=== PATIENT | female | born 1970 | race Hispanic/Latino ===

== ENCOUNTER 2017-11-21 20:37 | Emergency (ER) | payer BC ==
[2017-11-21] MEDS ORDERED: diphenhydrAMINE 50 MG/ML VIAL ONE (21:35)
[2017-11-21] MEDS ORDERED: Metoclopramide HCl 10 MG/2 ML VIAL ONE (21:35)
[2017-11-21 21:39] LABS: ALT (SGPT) 20 U/L (8-55); AST (SGOT) 18 U/L (5-34); Albumin 4.2 g/dL (3.5-5.0); Alkaline Phosphatase 71 U/L (40-150); Anion Gap 11 mmol/L (10-20); BUN (Urea Nitrogen) 20 mg/dL (7.0-18.7); Bilirubin, Total 0.9 mg/dL (0.2-1.2); Calc. Creatinine Clearance 0 mL/min (70-130); Calcium 9.1 mg/dL (7.8-10.44); Carbon Dioxide 24 mmol/L (22-29); Chloride 106 mmol/L (98-107); Estimated GFR-MDRD 81; Globulin 3.9 g/dL (2.4-3.5); Glucose 94 mg/dL (70-105); Potassium 3.7 mmol/L (3.5-5.1); Protein, Total 8.1 g/dL (6.0-8.3); Sodium 137 mmol/L (136-145)
[2017-11-21 21:47] LABS: Prothrombin Time 13.4 SEC (12.0-14.7)
[2017-11-21 21:52] LABS: #Basophils 0.1 thou/uL (0.0-0.2); #Eosinphils 0.2 thou/uL (0.0-0.7); #Lymphocytes 3.2 thou/uL (1.20-3.40); #Monocytes 0.7 thou/uL (0.11-0.59); #Neutrophils 5.6 thou/uL (1.40-6.50); %Basophils 0.9 % (0.0-1.0); %Lymphocytes 32.4 % (21.0-51.0); %Monocytes 7.3 % (0.0-10.0); %Neutrophils 57.4 % (42.0-75.0); Hemoglobin 13.4 g/dL (12.0-16.0); Mean Corpuscular HGB CONC 32.8 g/dL (32.0-36.0); Mean Corpuscular Hemoglobin 28.8 pg (27.0-31.0); Mean Corpuscular Volume 87.8 fl (81.0-99.0); Mean Platelet Volume 7.9 fL (7.4-10.4); Platelet Count 388 thou/uL (130-400); RBC Distribution Width 12.6 % (11.5-14.5); Red Blood Cell (RBC) Count 4.64 mill/uL (4.20-5.40); White Blood Cell (WBC) Count 9.7 thou/uL (4.8-10.8)
--- NOTE | 2017-11-21 21:59 | CT ---
CT OF BRAIN PERFORMED WITHOUT CONTRAST ENHANCEMENT: 11/21/17 HISTORY: Headache. 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 COMPARISON: A CT examination 06/12/13. The ventricular and cisternal cyst is within normal limits. There is no signs of intracerebral hemorr jess or extra-axial fluid collections. No mass lesion or mass effect. A small craniotomy seen just to the left of midline in the occipital region. IMPRESSION: No acute intracranial abnormalties. Postop changes of the left occipital region. POS: [facility]
[2017-11-21] MEDS ORDERED: Dexamethasone 10 MG/ML VIAL ONE (22:43)
== END 2017-11-21 23:22 | disposition home or self-care (01) ==
LOC: ERS 20:37
DX: R51 Headache (principal); I48.91 Unspecified atrial fibrillation; I50.9 Heart failure, unspecified; I34.1 Nonrheumatic mitral (valve) prolapse; Z86.73 Personal history of transient ischemic attack (TIA), and cerebral infarction without residual deficits
CPT/HCPCS: 70450; 80053; 85025; 85610; 96365; 96366; 96375; J1100; J1200; J2765

== ENCOUNTER 2018-01-03 20:29 | Emergency (ER) | payer BC | END 2018-01-03 23:30 | disposition home or self-care (01) | LOC: ERS 20:29 | DX: S30.0XXA Contusion of lower back and pelvis, initial encounter (principal); G43.909 Migraine, unspecified, not intractable, without status migrainosus; I50.9 Heart failure, unspecified; I48.91 Unspecified atrial fibrillation; I34.1 Nonrheumatic mitral (valve) prolapse; M35.00 Sjogren syndrome, unspecified; Z79.82 Long term (current) use of aspirin; Z86.73 Personal history of transient ischemic attack (TIA), and cerebral infarction without residual deficits; Z79.899 Other long term (current) drug therapy; W17.89XA Other fall from one level to another, initial encounter | CPT/HCPCS: 99283 ==

== ENCOUNTER 2018-07-08 11:48 | Emergency (ER) | payer SELFPAY ==
--- NOTE | 2018-07-08 12:15 | RAD ---
LEFT WRIST RADIOGRAPHS 3 VIEWS: DATE: 07/08/18. PROVIDED CLINICAL HISTORY: Left wrist pain status post injury. FINDINGS: There is no evidence for a fracture or other acute osseous abnormality. If there is persistent clini jojo concern, conservative management and followup imaging are advised. IMPRESSION: As above. POS: [facility]
== END 2018-07-08 13:09 | disposition home or self-care (01) ==
LOC: ERS 11:48
DX: M25.532 Pain in left wrist (principal); G43.909 Migraine, unspecified, not intractable, without status migrainosus; I48.91 Unspecified atrial fibrillation; Z86.73 Personal history of transient ischemic attack (TIA), and cerebral infarction without residual deficits; I50.9 Heart failure, unspecified; Z79.899 Other long term (current) drug therapy; Z79.82 Long term (current) use of aspirin
CPT/HCPCS: 29125

== ENCOUNTER 2019-03-19 21:19 | Emergency (ER) | payer SELFPAY ==
--- NOTE | 2019-03-19 22:03 | RAD ---
PORTABLE CHEST: Date: 03/19/19 HISTORY: Cough. FINDINGS: Lungs appear well aerated and clear of infiltrate. Heart and mediastinum unremarkable. IMPRESSION: No acute process identified. POS: [facility]
[2019-03-19] MEDS ORDERED: Albuterol Sulfate 2.5 mg/3 ml Neb ONE (22:23)
[2019-03-19] MEDS ORDERED: predniSONE 20 MG TAB ONE (22:54)
== END 2019-03-19 23:00 | disposition home or self-care (01) ==
LOC: ERS 21:19
DX: J20.9 Acute bronchitis, unspecified (principal); I50.9 Heart failure, unspecified; I48.91 Unspecified atrial fibrillation; G43.909 Migraine, unspecified, not intractable, without status migrainosus; I34.1 Nonrheumatic mitral (valve) prolapse; Z86.73 Personal history of transient ischemic attack (TIA), and cerebral infarction without residual deficits
CPT/HCPCS: 71045; 87804; 94640; J7512; J7611; J7620

== ENCOUNTER 2019-08-30 21:47 | Emergency (ER) | payer SELFPAY ==
[2019-08-30 22:18] LABS: #Eosinphils 0.1 thou/uL (0.0-0.7); #Lymphocytes 2.3 thou/uL (1.20-3.40); #Monocytes 0.7 thou/uL (0.11-0.59); #Neutrophils 9.1 thou/uL (1.40-6.50); %Basophils 0.3 % (0.0-1.0); %Eosinophils 1.1 % (0.0-10.0); %Monocytes 5.4 % (0.0-10.0); %Neutrophils 74.2 % (42.0-75.0); Hemoglobin 13.7 g/dL (12.0-16.0); Mean Corpuscular HGB CONC 33.3 g/dL (32.0-36.0); Mean Corpuscular Volume 87.1 fL (78.0-98.0); Mean Platelet Volume 7.6 fL (7.4-10.4); Platelet Count 347 thou/uL (130-400); RBC Distribution Width 12.2 % (11.5-14.5); Red Blood Cell (RBC) Count 4.72 mill/uL (4.20-5.40); White Blood Cell (WBC) Count 12.3 thou/uL (4.8-10.8)
[2019-08-30] MEDS ORDERED: Ondansetron PF 4 MG/2 ML Vial ONE (22:20)
[2019-08-30] MEDS ORDERED: Morphine 4 MG/ML VIAL ONE (22:20)
[2019-08-30 22:36] LABS: Lactic Acid 0.6 mmol/L (0.5-2.2)
[2019-08-30 22:41] LABS: ALT (SGPT) 23 U/L (8-55); AST (SGOT) 17 U/L (5-34); Albumin 4.2 g/dL (3.5-5.0); Alkaline Phosphatase 88 U/L (40-110); Anion Gap 14 mmol/L (10-20); BUN (Urea Nitrogen) 20 mg/dL (7.0-18.7); Bilirubin, Total 0.7 mg/dL (0.2-1.2); Calc. Creatinine Clearance 0 mL/min (70-130); Calcium 9.7 mg/dL (7.8-10.44); Carbon Dioxide 23 mmol/L (22-29); Chloride 106 mmol/L (98-107); Estimated GFR-MDRD 69; Globulin 3.8 g/dL (2.4-3.5); Glucose 109 mg/dL (70-105); Potassium 3.9 mmol/L (3.5-5.1); Sodium 139 mmol/L (136-145)
[2019-08-30 22:53] LABS: Bilirubin Negative (Negative); Blood, Urine 3+ (Negative); Clarity Turbid (Clear); Glucose, Urine (Dipstick) Normal (Negative); Leukocyte 250 Leu/uL (Negative); Nitrite Negative (Negative); Protein, Urine (Dipstick) 50 mg/dL (Neg-Trace); Urobilinogen Normal mg/dL (Less than 2)
[2019-08-30 22:59] LABS: Pregnancy Test - Urine (BHCG) Negative (Negative); Pregu Control Background? CLEAR/WHITE (CLR/WHITE); Pregu Control Bar Appear? YES (CONTROL BAR)
[2019-08-30 23:02] LABS: Bacteria/HPF 2+ HPF (None Seen)
--- NOTE | 2019-08-30 23:40 | CT ---
CT Abdomen Pelvis WO Con 08/30/2019 10:11 PM HISTORY: CT Abdomen Pelvis WO Con 08/30/2019 10:11 PM HISTORY: Right lower quadrant abdominal pain and back pain. COMPARISON: 11/16/2016 Technique: Multiple contiguous axial CT images are obtained through the abdomen and pelvis without IV contrast. Coronal reformats are provided. FINDINGS: This examination is limited for the evaluation of solid organs and vascular structures due to the lac k of intravenous contrast. Lower Chest: Lung bases are clear. Abdomen: Liver: Grossly normal nonenhanced CT appearance. Gallbladder: Grossly normal nonenhanced CT appearance. Pancreas: Grossly normal nonenhanced CT appearance. Spleen: Grossly normal nonenhanced CT appearance. Adrenals: Grossly normal nonenhanced CT appearance. Kidneys: No renal calculi are visualized, and there is no evidence of hydronephrosis. Ureters: No ureteral calculus is seen.. Pelvis: Urinary bladder: within normal limits. Reproductive Organs: A T-shaped intrauterine contraceptive device is again noted within the uterus. H owever, the device has migrated further inferiorly. A portion of the T-shaped intrauterine contents septa device is in very close proximity to the peripheral margin of the posterior body of the uterus. Erosion into the myometrium could not be excluded based on this examination. Lymph Nodes: No enlarged lymph nodes. Bowel: Normal caliber. Appendix: The appendix is normal in caliber. Peritoneum: No free fluid, free air, or fluid collection. Retroperitoneum: within normal limits. Vessels: Abdominal aorta is normal in caliber.. Abdominal Wall: within normal limits. Bones: Degenerative changes are again seen in the lumbosacral junction with hemangioma again seen in the L2 vertebral body. IMPRESSION: 1. No renal or ureteral calculi are seen bilaterally. 2. No CT evidence of appendicitis. 3. The T-shaped intrauterine contraceptive device has further migrated inferiorly and appears to be i n the lower body of the uterus. A portion of the T-shaped intrauterine contraceptive device is abutting the peripheral margin of the posterior body of the uterus. Erosion into the body of the uter us could not be excluded based on this exam. 4. Above findings discussed with Dr. Fried in the emergency department on 08/30/2019 at 2336 hours. COMPARISON: None. Technique: Multiple contiguous axial CT images are obtained through the abdomen and pelvis without IV contrast. Coronal reformats are provided. FINDINGS: This examination is limited for the evaluation of solid organs and vascular structures due to the lac k of intravenous contrast. Lower Chest: within normal limits. Abdomen: Liver: within normal limits. Gallbladder: Within normal limits for CT imaging. Pancreas: within normal limits. Spleen: within normal limits. Adrenals: within normal limits. Kidneys: No renal calculi are visualized, and there is no evidence of hydronephrosis. Ureters: No ureteral calculus is seen.. Pelvis: Urinary bladder: within normal limits. Reproductive Organs: No pelvic masses. Lymph Nodes: No enlarged lymph nodes. Bowel: Normal caliber. Appendix: The appendix is normal in caliber. Peritoneum: No free fluid, free air, or fluid collection. Retroperitoneum: within normal limits. Vessels: Abdominal aorta is normal in caliber.. Abdominal Wall: within normal limits. Bones: within normal limits.
== END 2019-08-31 00:23 | disposition home or self-care (01) ==
LOC: ERS 21:47
DX: T83.32XA Displacement of intrauterine contraceptive device, initial encounter (principal); N39.0 Urinary tract infection, site not specified; G43.909 Migraine, unspecified, not intractable, without status migrainosus; I50.9 Heart failure, unspecified
CPT/HCPCS: 36415; 74176; 80053; 81003; 81015; 81025; 83605; 85025; 93005; 96361; 96374; 96375; J2270; J2405

== ENCOUNTER 2019-09-29 11:18 | Emergency (ER) | payer SELFPAY ==
[2019-09-29 11:51] LABS: #Eosinphils 0.1 thou/uL (0.0-0.7); #Lymphocytes 2.2 thou/uL (1.20-3.40); #Monocytes 0.6 thou/uL (0.11-0.59); #Neutrophils 5.4 thou/uL (1.40-6.50); %Basophils 0.1 % (0.0-1.0); %Eosinophils 1.6 % (0.0-10.0); %Lymphocytes 26.5 % (21.0-51.0); %Monocytes 7.2 % (0.0-10.0); %Neutrophils 64.6 % (42.0-75.0); Hemoglobin 13.8 g/dL (12.0-16.0); Mean Corpuscular HGB CONC 33.4 g/dL (32.0-36.0); Mean Platelet Volume 7.4 fL (7.4-10.4); Platelet Count 376 thou/uL (130-400); Red Blood Cell (RBC) Count 4.76 mill/uL (4.20-5.40); White Blood Cell (WBC) Count 8.3 thou/uL (4.8-10.8)
--- NOTE | 2019-09-29 11:58 | CT ---
CT Brain WO Con HISTORY: Headache. Paresthesias. COMPARISON: 11/21/2017 exam. FINDINGS: The ventricular and cisternal system is slightly prominent for age. 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 There are no signs of intracerebral hemorrhage or extra-axial fluid collections. There is mucosal change within the right mastoid air cells. Visualized sinuses show some mucosal olguin ge within the right frontal sinus. IMPRESSION: 1. No acute intracranial abnormalities. 2. Findings telephoned to Dr. De Jesus at 1150 hours.
[2019-09-29 12:16] LABS: ALT (SGPT) 22 U/L (8-55); AST (SGOT) 18 U/L (5-34); Albumin 4.1 g/dL (3.5-5.0); Alkaline Phosphatase 80 U/L (40-110); Anion Gap 13 mmol/L (10-20); BUN (Urea Nitrogen) 16 mg/dL (7.0-18.7); Bilirubin, Total 0.9 mg/dL (0.2-1.2); Calc. Creatinine Clearance 0 mL/min (70-130); Calcium 9.1 mg/dL (7.8-10.44); Carbon Dioxide 24 mmol/L (22-29); Chloride 104 mmol/L (98-107); Estimated GFR-MDRD 83; Globulin 4.1 g/dL (2.4-3.5); Glucose 84 mg/dL (70-105); Potassium 3.8 mmol/L (3.5-5.1); Protein, Total 8.2 g/dL (6.0-8.3); Sodium 137 mmol/L (136-145)
--- NOTE | 2019-09-29 12:21 | CT ---
CT angiography of head and neck performed with intravenous contrast enhancement with 3-D reconstructi ons: HISTORY: Stroke type symptoms. Paresthesias. History of prior pineal cyst removal. COMPARISON: Noncontrast CT of brain done earlier today. FINDINGS: The lung apices are clear. The thyroid gland appears slightly prominent, there appears to a small nodule within the left lobe. There is moderate bilateral jugular chain adenopathy. The symmetry would suggest that these changes are related to reactive nodes. There is also some slightly numerous supraclavicular nodes seen. Again these are not pathologically enlarged. There is also some moderate left maxillary and mild right maxillary sinus mucosal disease. There is also opacificat ion of the right mastoid air cells. Vocal cord region is normal. Parapharyngeal spaces are clear. The parotid and submandibular glands ar e normal area Angiographic portion of the study yielded a good exam. The left vertebral is dominant with a small ri ght vertebral. The right common, internal and external carotid arteries are normal in appearance. No evidence of any significant stenosis by Nascet criteria. The left carotid system is also unremarkable. No dissection. CT angiography of head performed with intravenous contrast enhancement: The basilar and posterior cer ebral arteries appear normal. The A1 segment of the right anterior cerebral artery is small, this appears to be congenital as the a nterior communicating artery is prominent in the A2 segments of both anterior cerebral arteries obtained the flow mainly related to the left system. The middle cerebral arteries and their branches are normal. IMPRESSION: No evidence of significant stenosis of either internal carotid artery. 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 Findings telephoned to Dr. Booth at 1215 hours.
[2019-09-29] MEDS ORDERED: Dexamethasone 10 MG/ML VIAL ONE (12:22)
[2019-09-29] MEDS ORDERED: Iopamidol-370 76% 500 ML 1 ML ONE (12:30)
== END 2019-09-29 12:40 | disposition home or self-care (01) ==
LOC: ERS 11:18
DX: H66.91 Otitis media, unspecified, right ear (principal); R20.2 Paresthesia of skin; G43.909 Migraine, unspecified, not intractable, without status migrainosus; I50.9 Heart failure, unspecified; I49.9 Cardiac arrhythmia, unspecified; I48.91 Unspecified atrial fibrillation; Z86.73 Personal history of transient ischemic attack (TIA), and cerebral infarction without residual deficits
CPT/HCPCS: 36416; 70450; 70496; 70498; 80053; 84484; 85025; 93005; 96374; J1100; Q9967